=== PATIENT | female | born 1970 | race Caucasian/White ===

== ENCOUNTER → 2017-04-20 | Outpatient (CLI) | payer SELFPAY ==
[~2017-04-20] MED LIST: BENTYL20 MG PO; DARVOCET-N 1001 EACH PO; NADOLOL 20 MG T20 MG PO; NOMEDS; PRAVACHOL 40MG40 MG PO; TRAMADOL 50MG T50 MG PO
--- NOTE | 2017-04-20 16:46 | RADIOLOGY REPORT PS360 ---
CHEST(2 VIEWS-NOT PORTABLE) HISTORY: DECREASED BREATH SOUNDS AT LEFT LUNG BASE,COUGH ORDERING PHYSICIAN: SNEHA CALDWELL APRN PATIENT AGE: 46 years COMPARISON: 12/31/2015 FINDINGS: Large left-sided diaphragmatic hernia once again noted which is increased in size compared to the previous exam containing stomach and colon with left basilar atelectasis. Previous CT scan showed bilateral nodular opacities which are likely below limits of resolution for the chest x-ray. There is increased density however in the anterior clear space consistent with left upper lobe pneumonia although partially obscured by the overlying elevated hemidiaphragm. No evidence of CHF. The right lung is clear. No acute bony anomalies. IMPRESSION: 1. Left upper lobe pneumonia. 2. Large left sided diaphragmatic hernia with left basilar atelectasis. The hernia has increased in size compared to the previous radiograph but does not appear significant change compared to previous chest CT of 02/26/2017
== END ==
LOC: RAD 16:17
DX: R09.89 Other specified symptoms and signs involving the circulatory and respiratory systems (principal); R05 Cough

== ENCOUNTER → 2017-05-26 | Outpatient (CLI) | payer MEDICAID ==
[2017-05-26 14:45] VITALS: BP 111/69
[2017-05-26 14:55] VITALS: BP 118/70
== END ==
LOC: RT 12:34
DX: J44.9 Chronic obstructive pulmonary disease, unspecified (principal)